=== PATIENT | male | born 1965 | race African-American/Black ===

== ENCOUNTER 2019-07-22 17:33 | Inpatient (IN) ==
[2019-07-22] MEDS ORDERED: CEFEPIME 2,000 MG/20 ML VIAL IV STA (17:54)
[2019-07-22] MEDS ORDERED: VANCOMYCIN HCL 1,750 MG in SODIUM CHLORIDE 0.9% 500 ML IV ONE (17:54)
[2019-07-22] MEDS ORDERED: VANCOMYCIN CONSULT ACTIVE PRN ×2 (17:54→21:16)
[2019-07-22] MEDS ORDERED: SODIUM CHLORIDE 0.9% 1000ML 1,000 ML IV SCH (18:00)
[2019-07-22 18:24] LABS: Basophils # (auto) 0.03 K/uL (0-0.2); Basophils % (auto) 0.4 %; Eosinophils # (auto) 0.24 K/uL (0-0.5); Eosinophils % (auto) 2.9 %; Hematocrit (blood only) 40.2 % (42-52); Hemoglobin 13.4 g/dL (14.0-18.0); Immature Granulocytes # (auto) 0.02 K/uL (0.00-0.02); Immature Granulocytes % (auto) 0.2 %; Lymphocytes # (auto) 2.01 K/uL (1.2-3.4); Lymphocytes % (auto) 24.2 %; Mean Corpuscular Hemoglobin 30.7 pg (25-34); Mean Corpuscular Hgb Conc 33.3 g/dL (32-36); Mean Corpuscular Volume 92.2 fL (80-100); Mean Platelet Volume 8.9 fL (7.4-10.4); Monocytes % (auto) 9.7 %; Neutrophils # (auto) 5.19 K/uL (1.4-6.5); Neutrophils % (auto) 62.6 %; Platelet Count 350 K/uL (130-400); RDW Coefficient of Variation 14.2 % (11.5-14.5); Red Blood Count 4.36 M/uL (4.7-6.1); White Blood Count 8.29 K/uL (4.8-10.8)
--- NOTE | 2019-07-22 18:30 | XRay Report ---
XR hand RT min 3V routine CLINICAL HISTORY: Right hand pain status post trauma COMPARISON: None. DISCUSSION: No acute fractures or dislocations are visualized. There is a corticated ossicle adjacent the volar base of the middle phalanx of the third finger. This is felt to represent an old avulsion fracture. There is soft tissue swelling at the level of the proximal interphalangeal joint of the thi rd finger. There are moderately advanced arthritic changes within the radiocarpal joint. IMPRESSION: 1. No acute fractures or dislocations 2. 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 Soft tissue swelling at the level of the proximal interphalangeal joint of the third finger 4. 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 07/22/2019 6:29 PM
[2019-07-22 18:42] LABS: Albumin Level 3.1 gm/dl (3.4-5.0); C Reactive Protein 4.39 mg/dl (0-0.29); Calcium 8.5 mg/dl (8.5-10.1); Est GFR (African American) 120.3; Est GFR (Non-African American) 103.8; Potassium 3.7 mmol/L (3.5-5.1)
[2019-07-22] MEDS ORDERED: MoRPHine SULFATE 4 MG/ML 1 ML CARP\\VIAL IV STA (18:43)
[2019-07-22] MEDS ORDERED: ONDANSETRON INJ 2 MG/ML 2 ML VIAL IV STA (18:43)
[2019-07-22 18:45] LABS: Albumin Globulin Ratio 0.7 (0.9-2); Bilirubin,Total 0.3 mg/dl (0.2-1); Globulin 4.7 gm/dl (2.5-4.0); Total Protein 7.8 gm/dl (6.4-8.2)
--- NOTE | 2019-07-22 20:49 | History & Physical Report ---
Date of Service July 22, 2019 Assessment & Plan (1) Cellulitis of hand, right: 54yo M no significant PMH, admitted for severe infection/purulent cellulitis of R hand and Rt 3rd finger Cellulitis -Wound and blood cultures pending -Will start on empiric vanc and zosyn -Consulted ortho, appreciate recs -MRI of hand ordered to r/o osteomyelitis -Vitals stable, no s/s of sepsis; cont to monitor -Elevated ESR, mildly elevated CRP; monitor at discretion of day team -Pain control with tylenol, oxy, and morphine prn Code: full DVTP: scds Dispo: MSO admit (2) Purulent abscess: History of Present Illness Chief Complaint: Infected finger Primary Care Provider: NO PCP Patient is a 54yo M no significant PMH, who presents with concerns for infected right 3rd finger. Patient notes that 2 weeks ago, he injured his rt 3rd finger after falling onto his closed hand, breaking skin on his 3rd knuckle. He states that on the day of the injury, he went to a hospital in [place], where they placed stitches. He states that it was recommended he take antibiotics, but due to work constraints he was unable to pick them up. He has not been on any abx in the last 2 weeks. 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 He states the wound had been "fine" over the past 2 weeks, but reports some pus-like drainage from the wound. Yesterday, he noted his R 3rd finger become very swollen and painful, which was new. He notes there is now pain and swelling in all of his digits on his R hand and this extends to his wrist. He denies fever, chills, nausea, vomiting, diarrhea. Reports limited ROM of the 3rd finger. He is a current daily smoker. In the ER, he was noted to be afebrile with stable vital signs. CBC revealed WBC of 8.3K. BMP normal. ESR >90 and CRP of 4.39. Blood and wound cultures were sent and are pending. He was given a dose of vancomycin and cefepime. 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 Allergies Allergy/AdvReac Type Severity Reaction Status Date / Time No Known Allergies Allergy Verified 07/22/19 18:46 Home Medications Home Medications Medication Instructions Recorded Confirmed Type No Known Home Medications 07/22/19 07/22/19 History Past Med/Surg History Medical History (Updated 07/23/19 @ 00:52 by Scott Golden PA-C) No chronic diseases present Surgical History (Updated 07/23/19 @ 00:47 by Scott Golden PA-C) No significant past surgical history Social History Preferred Language: Montserratian Communication Ability: Effective Cook Cold Meat Required: No Beliefs That Will Affect Care: None Current Living Situation: Other Current Living Situation Comment: roommate Feels Safe at Home: Yes Safety Concerns: Feels Safe At This Time Smoking Status: Current every day smoker Tobacco Type: cigarettes ; Cigarettes Per Day: 5 ; Hx Alcohol Use: Yes Alcohol type: beer Hx Substance Use: No Review of Systems Review of Systems: All systems reviewed & are unremarkable except as noted in HPI & below Constitutional: no fever, no chills and no fatigue Respiratory: no cough and no dyspnea Cardiovascular: no chest pain, no palpitations and no edema Gastrointestinal: no abdominal pain, no nausea, no vomiting and no diarrhea/loose stools Musculoskeletal: + joint pain, + deformity and + swelling Integumentary: + non-healing lesions, + wounds, + erythema and + skin swelling as per HPI; of R hand/wrist Neurologic: no loss of sensation and no numbness Physical Exam Constitutional: WD/WN, vitals as above average body habitus Eyes: PERRL, conjunctivae normal, anicteric sclerae ENMT: external ear and nose normal, oropharynx normal Neck: normal visual inspection Respiratory: normal respiratory effort, lungs clear to auscultation Cardiovascular: RRR, no murmur, no edema Gastrointestinal (Abdomen): normal bowel sounds, soft, nontender, no hepatosplenomegaly Musculoskeletal: Extremities: + hand abnormality (Diffuse swelling of R hand compared to L. 3rd finger open lesion, purulent) Right Skin: + lesion Trauma: + evidence of skin trauma Rt 3rd finger diffusely swollen with open wound at 3rd dorsal PIP joint with purulent discharge. Neurologic: PERRL, EOMI, accommodation nl, no face palsy, no dysarthria Psychiatric: A+Ox3, euthymic affect Results & Data Vital Signs (Past 12 Hours) Vital Signs Temp Pulse Pulse Resp BP BP Pulse Ox 07/22/19 20:12 88 18 138/90 95 07/22/19 18:29 75 18 142/91 H 96 07/22/19 17:37 98.8 F 97 H 18 157/107 H 97 Laboratory Results 07/22/19 07/22/19 07/22/19 Range/Units 18:05 18:05 18:05 WBC (4.8-10.8) K/uL RBC (4.7-6.1) M/uL Hgb (14.0-18.0) g/dL Hct (42-52) % MCV (80-100) fL MCH (25-34) pg MCHC (32-36) g/dL RDW Std Deviation (36.4-46.3) fL RDW Coeff of Indu (11.5-14.5) % Plt Count (130-400) K/uL MPV (7.4-10.4) fL Immature Gran % (Auto) % Neut % (Auto) % Lymph % (Auto) % [place] % (Auto) % Eos % (Auto) % Baso % (Auto) % Immature Gran # (Auto) (0.00-0.02) K/uL Neut # (Auto) (1.4-6.5) K/uL Lymph # (Auto) (1.2-3.4) K/uL [place] # (Auto) (0.11-0.59) K/uL Eos # (Auto) (0-0.5) K/uL Baso # (Auto) (0-0.2) K/uL ESR > 90 H (0-14) mm/hr Sodium 138 (136-145) mmol/L Potassium 3.7 (3.5-5.1) mmol/L Chloride 107 (98-107) mmol/L Carbon Dioxide 25 (21-32) mmol/L Anion Gap 6.0 (3-11) BUN 9 (7-18) mg/dl Creatinine 0.78 (0.6-1.4) mg/dl Est Cr Clr Drug Dosing 118.0 ml/min Est GFR ( Amer) 120.3 Est GFR (Non-Af Amer) 103.8 BUN/Creatinine Ratio 12.0 (10-20) Glucose 95 (70-99) mg/dl Lactate 0.7 (0.4-2.0) mmol/L Calcium 8.5 (8.5-10.1) mg/dl Total Bilirubin 0.3 (0.2-1) mg/dl AST 16 (15-37) U/L ALT 16 (12-78) U/L Alkaline Phosphatase 80 (45-117) U/L C-Reactive Protein 4.39 H (0-0.29) mg/dl Total Protein 7.8 (6.4-8.2) gm/dl Albumin 3.1 L (3.4-5.0) gm/dl Globulin 4.7 H (2.5-4.0) gm/dl Albumin/Globulin Ratio 0.7 L (0.9-2) 07/22/19 Range/Units 18:05 WBC 8.29 (4.8-10.8) K/uL RBC 4.36 L (4.7-6.1) M/uL Hgb 13.4 L (14.0-18.0) g/dL Hct 40.2 L (42-52) % MCV 92.2 (80-100) fL MCH 30.7 (25-34) pg MCHC 33.3 (32-36) g/dL RDW Std Deviation 48.0 H (36.4-46.3) fL RDW Coeff of Indu 14.2 (11.5-14.5) % Plt Count 350 (130-400) K/uL MPV 8.9 (7.4-10.4) fL Immature Gran % (Auto) 0.2 % Neut % (Auto) 62.6 % Lymph % (Auto) 24.2 % [place] % (Auto) 9.7 % Eos % (Auto) 2.9 % Baso % (Auto) 0.4 % Immature Gran # (Auto) 0.02 (0.00-0.02) K/uL Neut # (Auto) 5.19 (1.4-6.5) K/uL Lymph # (Auto) 2.01 (1.2-3.4) K/uL [place] # (Auto) 0.80 H (0.11-0.59) K/uL Eos # (Auto) 0.24 (0-0.5) K/uL Baso # (Auto) 0.03 (0-0.2) K/uL ESR (0-14) mm/hr Sodium (136-145) mmol/L Potassium (3.5-5.1) mmol/L Chloride (98-107) mmol/L Carbon Dioxide (21-32) mmol/L Anion Gap (3-11) BUN (7-18) mg/dl Creatinine (0.6-1.4) mg/dl Est Cr Clr Drug Dosing ml/min Est GFR ( Amer) Est GFR (Non-Af Amer) BUN/Creatinine Ratio (10-20) Glucose (70-99) mg/dl Lactate (0.4-2.0) mmol/L Calcium (8.5-10.1) mg/dl Total Bilirubin (0.2-1) mg/dl AST (15-37) U/L ALT (12-78) U/L Alkaline Phosphatase (45-117) U/L C-Reactive Protein (0-0.29) mg/dl Total Protein (6.4-8.2) gm/dl Albumin (3.4-5.0) gm/dl Globulin (2.5-4.0) gm/dl Albumin/Globulin Ratio (0.9-2) Diagnostic Findings XR hand RT min 3V routine CLINICAL HISTORY: Right hand pain status post trauma COMPARISON: None. DISCUSSION: No acute fractures or dislocations are visualized. There is a corticated ossicle adjacent the volar base of the middle phalanx of the third finger. This is felt to represent an old avulsion fracture. There is soft tissue swelling at the level of the proximal interphalangeal joint of the third finger. There are moderately advanced arthritic changes within the radiocarpal joint. IMPRESSION: 1. No acute fractures or dislocations 2. 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 Soft tissue swelling at the level of the proximal interphalangeal joint of the third finger 4. 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 07/22/2019 6:29 PM Code Status & VTE Plan Code Status Full VTE Prophylaxis Plan VTE Prophylaxis will be ordered: Yes Supervising Physician Co-Signing Physician Notes Attending addendum: I have physically seen this patient, have supervised the medical residents activities, and agree with the H&P unless as otherwise noted. Assessment and Plan: Cellulitis of right hand/third finger- Admit to medical surgical floor. Vancomycin IV and Zosyn IV empirically. Follow wound culture and blood culture results. N.p.o. after midnight except medications. IV fluids. Acetaminophen 650 mg p.o. every 6 hours PRN mild pain or temperature. Oxycodone 5 mg p.o. every 6 hours as needed moderate pain. Morphine sulfate 2 mg IV every 4 hours as needed severe pain. Follow results of MRI of hand to assess for possible osteomyelitis. Remainder of orders and notations as noted. Resident Activity Tracking Resident Involvement: Resident Care Provided Care Provided: [facility]
[2019-07-22] MEDS ORDERED: MAGNESIUM HYDROXIDE SUSP 30 ML UDC PO PRN (21:16)
[2019-07-22] MEDS ORDERED: ONDANSETRON INJ 2 MG/ML 2 ML VIAL IV PRN (21:16)
[2019-07-22] MEDS ORDERED: MoRPHine SULFATE 4 MG/ML 1 ML CARP\\VIAL IV PRN (21:16)
[2019-07-22] MEDS ORDERED: ALUMINUM/MAGNESIUM SUSP 30 ML UDC PO PRN (21:16)
[2019-07-22] MEDS ORDERED: POLYETHYLENE (MIRALAX) 17 GM PACK PO PRN (21:16)
[2019-07-22] MEDS ORDERED: ACETAMINOPHEN 325 MG TAB PO PRN (21:16)
[2019-07-22] MEDS ORDERED: PIPERACILL/TAZOBAC CONSULT ACTIVE PRN (21:16)
[2019-07-22] MEDS: PIPERACILLIN/TAZOBACTAM 3.375 GM in DEXTROSE 5% 100 ML IV SCH (22:26)
[2019-07-22] MEDS: OXYCODONE HCL IR 5 MG TAB (IMMEDIATE RELEASE) PO PRN (23:38)
--- NOTE | 2019-07-23 00:51 | Emergency Department Note ---
History of Present Illness General Chief complaint: Finger Pain Stated complaint: RIGHT MIDDLE FINGER INFECTION Time Seen by Provider: 07/22/19 17:43 History of Present Illness Maximum Pain Intensity: 9 This is a 54-year-old male presenting to the emergency department for evaluation of right middle finger pain and infection worsening over the past several days. Evidently the patient lives in the [facility], and fell to the ground, striking this digit off the concrete. He went to an emergency room in [place] where the wound was cleansed and closed with a total of 3 stitches. The patient was prescribed antibiotics, but evidently lost his prescription. 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 The patient believes he is up-to-date on his tetanus. He has been with worsening pain over the past few days, and now has significant swelling into the finger and hand. He is having difficulty bending and extending the finger. He rates his overall discomfort in 8/10. He is not diabetic and does not report other chronic medical disease. Home Medications Home Medications Medication Instructions Recorded Confirmed Type No Known Home Medications 07/22/19 07/22/19 History Allergies Allergy/AdvReac Type Severity Reaction Status Date / Time No Known Allergies Allergy Verified 07/22/19 18:46 Past Med/Surg History Medical History (Updated 07/23/19 @ 00:52 by Scott Golden PA-C) No chronic diseases present Surgical History (Updated 07/23/19 @ 00:47 by Scott Golden PA-C) No significant past surgical history Social History Preferred Language: Arabic Communication Ability: Effective Flour Inspector Required: No Beliefs That Will Affect Care: None Current Living Situation: Other Current Living Situation Comment: roommate Feels Safe at Home: Yes Safety Concerns: Feels Safe At This Time Smoking Status: Current every day smoker Tobacco Type: cigarettes ; Cigarettes Per Day: 5 ; Hx Alcohol Use: Yes Alcohol type: beer Hx Substance Use: No Review of Systems A total of 10 systems reviewed and were otherwise negative Physical Exam Vital Signs Vital Signs - 24 hr 07/22/19 17:37 07/22/19 18:29 07/22/19 20:12 Temperature 37.1 C Temperature Source Oral Pulse Rate 97 H Pulse Rate [Finger] 75 88 Respiratory Rate 18 18 18 Respiratory Effort / Characteristics Non-Labored Spontaneous Respiratory Depth Normal Blood Pressure 157/107 H Blood Pressure [Right Arm] 142/91 H 138/90 Blood Pressure Mean 123 Blood Pressure Mean [Right Arm] 108 106 Blood Pressure Position Sitting Pulse Oximetry 97 96 95 Oxygen Delivery Method Room Air Room Air Sepsis Recent Fever Within 48 Hours No Sepsis Action Taken by Nursing No Action Required VITALS: Vitals are noted on the nurse's note and reviewed by myself. Vital signs stable. GENERAL: Well-developed, well-nourished, black male, who is in no acute distress and resting comfortably. Patient is cooperative with the examination. HEAD: Normocephalic atraumatic. NECK: Supple without nuchal rigidity. No lymphadenopathy. No thyromegaly. Cervical spine is nontender. HEART: Regular rate and rhythm without murmurs gallops or rubs. LUNGS: Clear to auscultation bilaterally without wheezes, rales or rhonchi. No retractions or accessory muscle use. MUSCULOSKELETAL: There is significant erythema and edema appreciated over the right third finger posteriorly. The erythema and edema extends into the right hand and just past the right wrist. There is what seems to be an obvious purulent infection just over the proximal metacarpal joint. Wound culture was obtained. The patient is with significant discomfort flexing and extending this digit. NEURO: Patient was alert and oriented to person place and time. CN II through XII grossly intact. SKIN: The skin was without additional rashes, erythema, edema, or bruising. Capillary refill less than 2 seconds. Course Administered Medications Piperacillin Sod/Tazobactam (Sod 3.375 gm/ Dextrose) 115 mls @ 28.75 mls/hr IV Q8H [facility]; Protocol Stop: 08/01/19 21:59 Last Admin: 07/22/19 22:26 Dose: 28.8 mls/hr Documented by: [id number] Oxycodone HCl (Roxicodone Immediate Rel) 5 mg PO Q6H PRN PRN Reason: Moderate Pain Stop: 08/05/19 21:15 Last Admin: 07/22/19 23:38 Dose: 5 mg Documented by: [id number] Discontinued Medications Sodium Chloride (Nss 1000ml) 1,000 mls @ 999 mls/hr IV .Q1H1M DAMARI Stop: 07/22/19 19:00 Last Infusion: 07/22/19 19:32 Dose: 0 mls/hr Documented by: [id number] Admin: 07/22/19 18:31 Dose: 999 mls/hr Documented by: [id number] Vancomycin HCl 1,750 mg/ (Sodium Chloride) 535 mls @ 200 mls/hr IV NOW ONE Stop: 07/22/19 20:34 Last Infusion: 07/22/19 21:10 Dose: 0 mls/hr Documented by: [id number] Admin: 07/22/19 18:36 Dose: 200 mls/hr Documented by: [id number] Cefepime HCl (Maxipime) 2,000 mg in 20 mls @ 5 mls/min IV NOW STA; Protocol Stop: 07/22/19 17:57 Last Admin: 07/22/19 18:31 Dose: 5 mls/min Documented by: [id number] Morphine Sulfate (Morphine Sulfate) 4 mg IV NOW STA Stop: 07/22/19 18:44 Last Admin: 07/22/19 18:48 Dose: 4 mg Documented by: [id number] Ondansetron HCl (Zofran) 4 mg IV NOW STA Stop: 07/22/19 18:44 Last Admin: 07/22/19 18:48 Dose: 4 mg Documented by: [id number] Medical Decision Making Differential Diagnosis Differential diagnosis includes: Etiologies such as cellulitis, abscess, osteomyelitis, MRSA infection, DVT, necrotizing fasciitis, dermatitis, drug eruption, as well as others were entertained Laboratory Data Result diagrams: 07/22/19 18:05 07/22/19 18:05 Lab Results 07/22/19 07/22/19 07/22/19 Range/Units 18:05 18:05 18:05 WBC 8.29 (4.8-10.8) K/uL RBC 4.36 L (4.7-6.1) M/uL Hgb 13.4 L (14.0-18.0) g/dL Hct 40.2 L (42-52) % MCV 92.2 (80-100) fL MCH 30.7 (25-34) pg MCHC 33.3 (32-36) g/dL RDW Std Deviation 48.0 H (36.4-46.3) fL RDW Coeff of Indu 14.2 (11.5-14.5) % Plt Count 350 (130-400) K/uL MPV 8.9 (7.4-10.4) fL Immature Gran % (Auto) 0.2 % Neut % (Auto) 62.6 % Lymph % (Auto) 24.2 % [place] % (Auto) 9.7 % Eos % (Auto) 2.9 % Baso % (Auto) 0.4 % Immature Gran # (Auto) 0.02 (0.00-0.02) K/uL Neut # (Auto) 5.19 (1.4-6.5) K/uL Lymph # (Auto) 2.01 (1.2-3.4) K/uL [place] # (Auto) 0.80 H (0.11-0.59) K/uL Eos # (Auto) 0.24 (0-0.5) K/uL Baso # (Auto) 0.03 (0-0.2) K/uL ESR > 90 H (0-14) mm/hr Sodium 138 (136-145) mmol/L Potassium 3.7 (3.5-5.1) mmol/L Chloride 107 (98-107) mmol/L Carbon Dioxide 25 (21-32) mmol/L Anion Gap 6.0 (3-11) BUN 9 (7-18) mg/dl Creatinine 0.78 (0.6-1.4) mg/dl Est Cr Clr Drug Dosing 118.0 ml/min Est GFR ( Amer) 120.3 Est GFR (Non-Af Amer) 103.8 BUN/Creatinine Ratio 12.0 (10-20) Glucose 95 (70-99) mg/dl Lactate (0.4-2.0) mmol/L Calcium 8.5 (8.5-10.1) mg/dl Total Bilirubin 0.3 (0.2-1) mg/dl AST 16 (15-37) U/L ALT 16 (12-78) U/L Alkaline Phosphatase 80 (45-117) U/L C-Reactive Protein 4.39 H (0-0.29) mg/dl Total Protein 7.8 (6.4-8.2) gm/dl Albumin 3.1 L (3.4-5.0) gm/dl Globulin 4.7 H (2.5-4.0) gm/dl Albumin/Globulin Ratio 0.7 L (0.9-2) 07/22/19 Range/Units 18:05 WBC (4.8-10.8) K/uL RBC (4.7-6.1) M/uL Hgb (14.0-18.0) g/dL Hct (42-52) % MCV (80-100) fL MCH (25-34) pg MCHC (32-36) g/dL RDW Std Deviation (36.4-46.3) fL RDW Coeff of Indu (11.5-14.5) % Plt Count (130-400) K/uL MPV (7.4-10.4) fL Immature Gran % (Auto) % Neut % (Auto) % Lymph % (Auto) % [place] % (Auto) % Eos % (Auto) % Baso % (Auto) % Immature Gran # (Auto) (0.00-0.02) K/uL Neut # (Auto) (1.4-6.5) K/uL Lymph # (Auto) (1.2-3.4) K/uL [place] # (Auto) (0.11-0.59) K/uL Eos # (Auto) (0-0.5) K/uL Baso # (Auto) (0-0.2) K/uL ESR (0-14) mm/hr Sodium (136-145) mmol/L Potassium (3.5-5.1) mmol/L Chloride (98-107) mmol/L Carbon Dioxide (21-32) mmol/L Anion Gap (3-11) BUN (7-18) mg/dl Creatinine (0.6-1.4) mg/dl Est Cr Clr Drug Dosing ml/min Est GFR ( Amer) Est GFR (Non-Af Amer) BUN/Creatinine Ratio (10-20) Glucose (70-99) mg/dl Lactate 0.7 (0.4-2.0) mmol/L Calcium (8.5-10.1) mg/dl Total Bilirubin (0.2-1) mg/dl AST (15-37) U/L ALT (12-78) U/L Alkaline Phosphatase (45-117) U/L C-Reactive Protein (0-0.29) mg/dl Total Protein (6.4-8.2) gm/dl Albumin (3.4-5.0) gm/dl Globulin (2.5-4.0) gm/dl Albumin/Globulin Ratio (0.9-2) Imaging Data Radiologist's Impression: XR hand RT min 3V routine CLINICAL HISTORY: Right hand pain status post trauma COMPARISON: None. DISCUSSION: No acute fractures or dislocations are visualized. There is a corticated ossicle adjacent the volar base of the middle phalanx of the third finger. This is felt to represent an old avulsion fracture. There is soft tissue swelling at the level of the proximal interphalangeal joint of the third finger. There are moderately advanced arthritic changes within the radiocarpal joint. IMPRESSION: 1. No acute fractures or dislocations 2. 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 Soft tissue swelling at the level of the proximal interphalangeal joint of the third finger 4. 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 Nursing notes, EMR, and Medication List were personally reviewed. Patient appears to have significant infection of the right third finger extending into his hand and wrist. There is significant purulence coming from the right hand over the right third finger. The patient is right-hand dominant. IV access was established and labs were obtained. Blood cultures were gathered. Wound culture was sent. X-ray was performed. The patient was given IV vancomycin and IV cefepime for broad coverage. He was given IV morphine and IV Zofran. The patient's blood work is as above and was reviewed. He does not have a sig nificantly elevated white blood cell count or gross anemia. He does have a markedly elevated sed rate at greater than 90, as well as a corresponding CRP that is elevated at 4.39. X-ray was reviewed by myself and radiology him does not show any acute fractures or dislocations. No obvious osteomyelitis is identified. I did have a lengthy discussion with the patient regarding his findings and opt ions of care. Based on his infection I have significant concern that he could lose the finger or possibly need surgical washout. The patient is comfortable with staying in the hospital. The case was discussed with the on-call hospitalist who agreed to evaluate the patient. Please see their dictation for further patient course, plan, and disposition. The chart was completed utilizing [employer] Voice Recognition Software. Grammatical errors, random word insertions, pronoun errors, and incomplete sentences are an occasional consequence of this system due to software limitations, ambient noise, and hardware issues. Any formal questions or concerns about the content, text, or information contained within the body of this dictation should be directly addressed to the provider for clarification. . Impression & Plan Abscess of finger, Cellulitis of hand, right Discharge Plan Visit Data *Final* Discharge Date/Time: 07/22/19 21:03 Chief Complaint: Finger Pain Stated Complaint: RIGHT MIDDLE FINGER INFECTION ED Provider: Lino Sargent ED Midlevel Provider: Scott Golden Discharge Problem: Abscess of finger, Cellulitis of hand, right Patient Disposition: Admitted As Inpatient Discharge Instructions Interventions: ED Discharge Assessment Last Done: 07/22/19 21:03 Discharge Problem: Abscess of finger Qualifiers: Laterality: right Qualified Code(s): L02.511 - Cutaneous abscess of right hand
[2019-07-23] MEDS: VANCOMYCIN HCL 1,500 MG in SODIUM CHLORIDE 0.9% 500 ML IV SCH ×3 (02:26→19:22)
--- NOTE | 2019-07-23 04:25 | Billing Data ---
Coding Level of Care Code 88655 Initial Inpt Care Lvl 2
[2019-07-23 05:25] LABS: Basophils # (auto) 0.04 K/uL (0-0.2); Basophils % (auto) 0.8 %; Eosinophils # (auto) 0.26 K/uL (0-0.5); Eosinophils % (auto) 4.9 %; Hematocrit (blood only) 35.4 % (42-52); Hemoglobin 11.6 g/dL (14.0-18.0); Immature Granulocytes # (auto) 0.01 K/uL (0.00-0.02); Immature Granulocytes % (auto) 0.2 %; Lymphocytes # (auto) 1.96 K/uL (1.2-3.4); Lymphocytes % (auto) 36.8 %; Mean Corpuscular Hemoglobin 30.5 pg (25-34); Mean Corpuscular Hgb Conc 32.8 g/dL (32-36); Mean Corpuscular Volume 93.2 fL (80-100); Mean Platelet Volume 8.9 fL (7.4-10.4); Monocytes # (auto) 0.68 K/uL (0.11-0.59); Monocytes % (auto) 12.8 %; Neutrophils # (auto) 2.37 K/uL (1.4-6.5); Neutrophils % (auto) 44.5 %; Platelet Count 321 K/uL (130-400); RDW Coefficient of Variation 14.3 % (11.5-14.5); RDW Standard Deviation 48.7 fL (36.4-46.3); White Blood Count 5.32 K/uL (4.8-10.8)
[2019-07-23] MEDS: PIPERACILLIN/TAZOBACTAM 3.375 GM in DEXTROSE 5% 100 ML IV SCH ×3 (05:30→22:41)
[2019-07-23 05:46] LABS: Albumin Level 2.6 gm/dl (3.4-5.0); BUN Creatinine Ratio 9.7 (10-20); Calcium 8.2 mg/dl (8.5-10.1); Creatinine Clr Calc Pharmacy 110.9 ml/min; Est GFR (African American) 117.3; Est GFR (Non-African American) 101.2
[2019-07-23 05:49] LABS: Albumin Globulin Ratio 0.7 (0.9-2); Bilirubin,Total 0.5 mg/dl (0.2-1); Total Protein 6.6 gm/dl (6.4-8.2)
--- NOTE | 2019-07-23 08:04 | Hospitalist Progress Note ---
Date of Service July 23, 2019 Assessment & Plan (1) Cellulitis of hand, right: 54yo M no significant PMH, admitted for severe infection/purulent cellulitis of R hand and Rt 3rd finger Cellulitis -Wound and blood cultures growing staph aures with pending sensitivities -Continue with vanc and zosyn -Consulted ortho, plan for surgical intervention today -MRI of hand ordered to r/o osteomyelitis, which showed significant infection without cellulitis -Vitals stable, no s/s of sepsis; cont to monitor -Elevated ESR, mildly elevated CRP -Pain control with tylenol, oxy, and morphine prn -Tetanus ordered since unsure of last Code: full DVTP: scds Dispo: MSO admit (2) Purulent abscess: Supervising Physician Co-Signing Physician Notes Attending attestation Pt seen and examined in concert with Dr. Castillo. In agreement with the documented findings as noted in the resident documentation with any exceptions or additions as noted here. Pain improving and well controlled on present regimen prior to surgery. On examination, S1/S2 nl RRR no MCG. CTAB. Abd NT/ND BS+ve. Right 3rd PIP with considerable swelling, erythema and minimal drainage. Right 3rd digit cellulitis - MRI results as noted, ortho to OR for debridement today. Continue abx therapy. F/U Cx to narrow therapy. Else see resident documentation as noted. Subjective No acute events reported overnight, plan for surgery today, tolerating medications without difficulty. Physical Exam Constitutional: WD/WN, vitals as above Eyes: + anicteric sclerae and EOM intact bilaterally Neck: normal visual inspection and trachea midline Respiratory: normal respiratory effort, lungs clear to auscultation Cardiovascular: Rate/Rhythm: regular rate and regular rhythm Musculoskeletal: Head/Neck/Chest: normocephalic and head atraumatic grossly significant cellulitis of right hand Skin: no rashes, warm and dry Psychiatric: A+Ox3, euthymic affect Results & Data Vital Signs (Past 12 Hours) Vital Signs Temp Pulse Resp BP Pulse Ox 07/23/19 07:11 36.9 C 83 16 111/72 93 07/22/19 23:50 37 C 86 18 116/70 94 07/22/19 21:29 37.1 C 80 16 151/80 H 93 07/22/19 20:12 88 18 138/90 95 Resident Activity Tracking Resident Involvement: Resident Care Provided Care Provided: Adult Hospital Medicine
[2019-07-23] MEDS: OXYCODONE HCL IR 5 MG TAB (IMMEDIATE RELEASE) PO PRN ×2 (08:19→19:21)
--- NOTE | 2019-07-23 08:47 | Pharmacy Report ---
Pharmacy Abx Initial Consult - Date of Service July 23, 2019 - Pharmacy Dosing Scope Date of Consult: 07/22/19 Consultation requested by: Dr. Hyman Pharmacy is consulted to initiate vancomycin and Zosyn IV dosing therapy, order appropriate labs and adjust drug dose/frequency. - Subjective The patient is a 54 year old M admitted on 07/22/19 20:43. - Objective Height: 5 ft 11 in Weight: 84.9 kg Vital Signs (Past 12hrs): Vital Signs Temp Pulse Resp BP Pulse Ox 07/23/19 07:11 36.9 C 83 16 111/72 93 07/22/19 23:50 37 C 86 18 116/70 94 07/22/19 21:29 37.1 C 80 16 151/80 H 93 Lab Results (24hrs): Laboratory Tests (24 Hours) 07/23/19 07/23/19 07/22/19 04:56 04:56 18:05 WBC 5.32 Neut # (Auto) 2.37 ESR Creatinine 0.83 0.78 Est Cr Clr Drug Dosing 110.9 118.0 C-Reactive Protein 4.39 H 07/22/19 07/22/19 18:05 18:05 WBC 8.29 Neut # (Auto) 5.19 ESR > 90 H Creatinine Est Cr Clr Drug Dosing C-Reactive Protein Micro Results: 07/22/19 17:52 Gram Stain - Final Finger Wound Culture - Pending 07/22/19 18:05 Aerobic Blood Culture - Pending Blood Anaerobic Blood Culture - Pending 07/22/19 18:05 Aerobic Blood Culture - Pending Blood Anaerobic Blood Culture - Pending - Assessment & Plan Assessment 54 year old M receiving empiric vancomycin and Zosyn for purulent cellulitis of the right hand and right third finger. Patient injured his hand approximately 2 weeks ago - received stitches at hospital in [place]. He was ordered antibiotics, but these were never taken by the patient. Patient notes purulent drainage from the wound and states that his right third finger became very swollen on 07/21/19. Patient is afebrile with good/stable renal function and no leukocytosis. Hand x-ray (07/22/19): soft tissue swelling at the level of the proximal interpha langeal joint of the third finger Microbiology: * Blood x 2 (07/22/19): pending * Finger (07/22/19): gram stain reveals rare gram positive cocci and many WBCs; culture pending Plan Vancomycin IV * Estimated PK Parameters: Vd 0.7 L/kg, Agustín 0.102 hr-1, t1/2 6.8 hr * Loading dose: 1750 mg (20 mg/kg) * Maintenance dose: 1500 mg IV (17.5 mg/kg) every 8 hours * Dosing vanco to achieve AUC:MICHELLE > 400 * Trough ordered for 07/24 @0130 Piperacillin/tazobactam * 3.375 g bolus administered over 30 minutes, then 3.375 g IV extended infusion every 8 hours for CrCl greater than 20 mL/min Pharmacy will continue to follow and will adjust dose/frequency as necessary. Thank you.
[2019-07-23] MEDS ORDERED: VANCOMYCIN TROUGH ONE (09:30)
--- NOTE | 2019-07-23 10:43 | Magnetic Resonance Report ---
MR hand RT wo con HISTORY: Right third finger swelling. Concern for osteomyelitis TECHNIQUE: Multiplanar multisequence MRI of the right hand was performed without the use of intraveno us contrast. COMPARISON STUDY: Right hand radiograph 07/22/2019. FINDINGS: Dorsal soft tissue swelling and subcutaneous edema seen throughout the hand. There is also diffuse soft tissue edema at the third finger most pronounced at the PIP joint. Subtle marrow edema w ithout abnormal T1 signal seen at the head/neck of the proximal phalanx of the third finger. There is small amount of surrounding fluid/hemorrhage at the neck of the proximal phalanx best seen on sagitt al STIR image 19. This measures up to 3 mm in thickness. No erosive changes present. There is also a small focus of marrow edema at the dorsal head of the third metacarpal. No acute fracture or dislocat ion. Redemonstration of the old avulsion injury at the volar plate of the middle phalanx of the third finger with slight retraction of the flexor digitorum tendon. IMPRESSION: 1. Dorsal soft tissue swelling is subcutaneous edema seen throughout the hand most pronounced at the PIP joint of the third finger. 2. Subtle marrow edema without abnormal T1 signal at the head/neck of the proximal phalanx of the thi rd finger. There is also small amount of surrounding fluid/hemorrhage at the neck of the proximal pha lanx which could be subperiosteal. This raises the possibility of a healing fracture. Follow-up radio graph in 2 weeks is recommended for confirmation. No acute fractures identified. A developing osteiti s/infectious process is considered less likely given the lack of T1 signal abnormality but not entire ly excluded. 3. Small focus of mild marrow edema along the dorsal head of the third metacarpal. This could represe nt a prior bone contusion in the appropriate clinical setting. 4. Redemonstration of the old avulsion injury at the volar plate of the middle phalanx of the third f nicol with slight retraction of the flexor digitorum tendon. Electronically signed by: Sathya Griffin M.D. 07/23/2019 10:41 AM
--- NOTE | 2019-07-23 10:59 | Consultation Report ---
DATE OF CONSULTATION: 07/23/2019 CHIEF COMPLAINT: Right long finger infection. HISTORY OF PRESENT ILLNESS: This 54-year-old -[place] male presented to the ED yesterday with complaints of significant infection in his right long finger. The patient states that he fell on to the hand last week. The skin was broken over the PIP joint of the long finger. He went to a hospital in [place] where the wound was irrigated and closed. He was prescribed antibiotics, but was unable to pick them up. 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 Injury did not occur at work. On Tuesday, he noted that the right long finger became swollen and painful. The area that was previously sutured developed significant purulent drainage. He noticed a red streak coming up the dorsum of the hand to the wrist. It was warm. No fevers, chills, nausea, vomiting or shoulder pain. He states it is difficult to move the finger secondary to pain. No prior history of significant hand injury. PAST MEDICAL HISTORY: Benign. No history of diabetes. PREVIOUS SURGERIES: None. SOCIAL HISTORY: The patient is single. Employed in construction. Daily tobacco use, occasional ETOH use. FAMILY HISTORY: Noncontributory. ALLERGIES: NKDA. CURRENT MEDICATIONS: None. REVIEW OF SYSTEMS: A total of 10 systems are reviewed and are significant only for above stated conditions. PHYSICAL EXAMINATION: VITAL SIGNS: Temp 36.9, pulse 83, BP 111/72, respirations 16, O2 sat 93% on room air. GENERAL: Well-developed, well-nourished middle aged -[place] male in no acute distress. Lying on a bed. Alert and oriented. SKIN: Warm and dry with good turgor. No rashes. The patient has an open wound present on the dorsum of his right long finger at the PIP joint. There is catalina pus expressible from the wound. Wound edges are gaping. Long finger is edematous. There is warmth to the dorsum of the hand. No lymphangitis. MUSCULOSKELETAL: The patient has no discomfort with palpation over his wrist or metacarpals. No pain with palpation over the thumb, index, ring or little fingers. He does have discomfort with palpation over the long finger both dorsally and volar. He does have intact motor function to the DIP and PIP joints through isolation. This does cause some pain. There is no open wound on the flexor side, though there is some erythema. NEUROLOGIC: Gross sensation is intact across each of the digits of the right hand. He notes decreased subjective sensation across the tip of the long finger compared to the other digits. Capillary refill is equal for each of the fingers. DATA: Radiographic imaging previously obtained shows no acute fracture or dislocation. Advanced arthritic changes at the radiocarpal joint. Soft tissue swelling at the PIP joint of the long finger. Old avulsion fracture at the volar base of the middle phalanx of the long finger. LAB WORK: CBC obtained this morning shows a normal white count of 5.3. Mildly low H and H of 11.6 and 35.4. Chemistry panel is relatively unremarkable other than albumin low at 2.6. IMPRESSION: Right long finger infection. PLAN: The patient was educated regarding today's findings. He will require incision and drainage in the OR. The patient is already n.p.o. He is already on vancomycin and Zosyn. He will be seen by Dr. Farmer later today for consent. We will continue to follow while he is in the hospital. He may ultimately require additional followup closer to home in [place]. MRI of the hand is scheduled for later this morning to rule out osteomyelitis. i, Dr. Farmer, saw and examined the patient and agree with the above findings and plan of care discussed with my PA. Will take to OR later today for I&D. Risks and benefits discussed. Patient understands he may require repeat I&D. The informed consent was signed. OSMIN
[2019-07-23] MEDS ORDERED: LIDOCAINE HCL 2% 2 ML VIAL/AMP(20MG/ML) INFIL ONE (15:00)
[2019-07-23] MEDS ORDERED: MIDAZOLAM HCL 1 MG/ML 2ML VIAL ONE (15:00)
[2019-07-23] MEDS ORDERED: PROPOFOL IV EMULSION 10 MG/ML 20 ML VIAL IV ONE (15:00)
[2019-07-23] MEDS ORDERED: ONDANSETRON INJ 2 MG/ML 2 ML VIAL ONE (15:00)
[2019-07-23] MEDS ORDERED: fentaNYL citrate 100 MCG/2 ML VIAL ONE (15:01)
[2019-07-23] MEDS ORDERED: DIPHTHERIA/TETANUS/PERTUSSIS 0.5 ML SYR/VIAL IM ONE (15:16)
--- NOTE | 2019-07-23 15:51 | Anesthesiology Consultation ---
Date of Service July 23, 2019 Assessment & Plan ASA ASA2 Proposed Anesthesia Anesthesia Type: General Risk / Benefits Reviewed With: PT / POA / Parent / Guardian, Accepts Plan and Informed Consent Obtained History Surgery Operation Date: 07/23/19 08:20 Proposed Procedures p Right Long Finger Abscess Incision and Drainage - Servando Charlee Farmer MD Height/Weight Height: 5 ft 11 in Weight: 84.9 kg Allergies Allergy/AdvReac Type Severity Reaction Status Date / Time No Known Allergies Allergy Verified 07/22/19 18:46 Medications Home Medications Medication Instructions Recorded Confirmed Last Taken No Known Home Medications 07/22/19 07/22/19 Unknown Active Medications Generic Name Dose Route Start Last Admin Trade Name Freq PRN Reason Stop Dose Admin Vancomycin HCl 1,500 mg/ 530 mls @ 200 mls/hr 07/23/19 02:00 07/23/19 12:47 Sodium Chloride IV 08/02/19 01:59 Infused Q8H DAMARI Infusion Piperacillin Sod/Tazobactam 115 mls @ 28.75 mls/hr 07/22/19 22:00 07/23/19 13:05 Sod 3.375 gm/ Dextrose IV 08/01/19 21:59 28.8 mls/hr Q8H DAMARI Administration Protocol Oxycodone HCl 5 mg 07/22/19 21:16 07/23/19 08:19 Roxicodone Immediate Rel PO 08/05/19 21:15 5 mg Q6H PRN Administration Moderate Pain NPO Date Last Intake of Fluids: 07/22/19 Time Last Intake of Fluids: 23:30 Last Intake of Fluids Comment: "sip with my pain medicine this morning" Date Last Intake of Solids: 07/22/19 Time Last Intake of Solids: 23:30 Last Intake of Solids Comment: "ice cream" Past Medical History Medical History No chronic diseases present Exercise / Class Metabolic Activity 1 > 8 Run/Swim/Ski/Tennis Past Surgical History Surgical History No significant past surgical history Past Anesthesia History No Hx of Anesthesia Complications and No Family Hx of Anesthesia Complications History of PONV No Hx of PONV and No Hx of Motion Sickness Social History Smoking Status: Current every day smoker tobacco type: cigarettes Smoking cigarettes per day: 5 Hx Alcohol Use: Yes Alcohol type: beer alcohol intake frequency: holidays/special occasions only Hx Substance Use: No Review of Systems denies fever/cough/ colds/ chest pain/ SOB/ GALINDO Constitutional: no fever and no chills Respiratory: no cough and no dyspnea denies GALINDO Cardiovascular: no chest pain and no dyspnea on exertion Physical Exam Vital Signs Last Vital Signs Temp 37 C 07/23/19 14:20 Pulse 79 07/23/19 14:20 Resp 18 07/23/19 14:20 BP 140/83 07/23/19 14:20 Pulse Ox 93 07/23/19 14:20 ENMT Mouth: no TMJ abnormality and no dentition abnormality Thyromental Distance: > or= 3.5 Finger Breadths Mallampati Class: II Neck neck extension not limited Respiratory normal respiratory effort; no respiratory distress Auscultation: lungs clear to auscultation bilaterally Cardiovascular Rate/Rhythm: regular rate and regular rhythm Neurologic moves all extremities Psychiatric Orientation: alert and oriented x 3 Testing Laboratory Results 07/23/19 04:56 07/23/19 04:56 07/22/19 17:52 Gram Stain - Final Finger Wound Culture - Preliminary Staphylococcus aureus Group A Beta Strep
[2019-07-23] MEDS ORDERED: fentaNYL citrate 100 MCG/2 ML VIAL IV PRN (15:54)
[2019-07-23] MEDS ORDERED: ePHEDrine sulfate 50 MG/ML AMP IV PRN (15:54)
[2019-07-23] MEDS ORDERED: ATROPINE SULFATE 0.1 MG/ML 10ML SYR IV PRN (15:54)
--- NOTE | 2019-07-23 16:10 | History & Physical Bridge Note ---
Date of Service July 23, 2019 History & Physical Bridge Note I have examined the patient, reviewed the History & Physical and in the interval since the performance of the History & Physical I have noted the following changes of clinical significance: no changes noted
[2019-07-23] MEDS ORDERED: BUPIVACAINE 0.5 % 5 MG/1 ML MPF 30ML VIAL ONE (16:22)
[2019-07-23] MEDS ORDERED: LIDOCAINE/EPINEPHRINE 1% 20 ML VIAL ONE (16:22)
[2019-07-23] MEDS ORDERED: LIDOCAINE HCL 1% 20 ML VIAL ONE (16:34)
[2019-07-23] MEDS ORDERED: KETOROLAC 30 MG/ML VIAL ONE (17:04)
--- NOTE | 2019-07-23 18:03 | Post Operative Brief Note ---
Immediate Post Op Note v1 Date of Surgery July 23, 2019 Pre & Post Diagnosis Operation Date: 07/23/19 08:20 Pre-Op Diagnosis: Right Middle Finger infection with Purulent Drainage Post-Op Diagnosis: Right Middle Finger infection with Purulent Drainage I identified the patient and participated in the time-out.: Yes Procedure Operation Date: 07/23/19 08:20 Actual Procedures p Right Third Finger Deep Incision and Drainage(Right) - Servando Farmer MD Surgeon Servando Farmer MD Sales Training Manager C Flo & Luis Ryan PA-C (No fellow avail) Estimated Blood Loss 7 Findings Consistent with Post-Op Diagnosis Fluids 800 cc Specimens C& S R MF R MF soft tissue Anesthesia Type General Complications none
--- NOTE | 2019-07-23 18:05 | Operative Report ---
Post Operative Report Pre & Post Diagnosis Operation Date: 07/23/19 08:20 Pre-Op Diagnosis: Right Middle Finger Infection with Purulent Drainage Post-Op Diagnosis: Right Middle Finger Infection with Purulent Drainage I identified the patient and participated in the time-out.: Yes Procedure Operation Date: 07/23/19 08:20 Actual Procedures p Right Third Finger Deep Incision and Drainage(Right) - Servando Farmer MD Surgeon Servando Farmer MD Cpr Instructor Ricardo Rossi & Luis Ryan PA-C (No fellow avail) Estimated Blood Loss 7 Findings See Below There was an open wound over the dorsal aspect of the right middle finger, that violated the extensor mechanism and entered the PIP joint. There was significant devitalized, fibrinous, necrotic soft tissue; however, there was no pocket of purulent fluid found. The articular cartilage looked intact. The proximal and middle phalanx showed no signs of softening. Fluids 800 cc Specimens C&S R MF R MF soft tissue for path Drains n/a Anesthesia Type General Complications none Indications The patient is a 54-year-old male, right-hand dominant, that has a draining wound from their right middle finger over the PIP joint that appears infected now. The patient had fallen and sustained a laceration over the right middle finger PIP joint several weeks ago and had it sutured closed at a local hospital, but never obtained were took any of the antibiotics that were prescribed. The patient understands the risks of surgery, which include but are not limited to: bleeding, infection, re-operation, damage to nerves and arteries, continued pain and possible need for repeat surgery. The patient understands all of these instructions and explanations, all of their questions have been satisfactorily addressed. The patient has elected to proceed with surgery and the informed consent was signed. Description of Procedure The patient was taken to the Operating Room and placed in the supine position on the operating table. After general anesthetic was administered a multidisciplinary time-out was performed identifying my initials on the right upper limb as the correct and operative limb. Antibiotics were held as he is already on a regime of vancomycin and Unasyn. The right upper extremity was prepped and draped in the usual Orthopaedic sterile fashion. The planned incision incorporated the previous wound over the dorsal PIP joint of the right middle finger and extended in a lag fashion. The skin edges were injected with a 50:50 mixture of 1% lidocaine and 0.5 % Marcaine plain and in addition a digital nerve block was also performed for a total of 10cc. The planned incision created and there was a noted retained Prolene suture that was hidden under some of the scabbing, that was removed. There was devitalized, fibrinous, necrotic soft tissue among the skin as well as the extensor mechanism. There was a small defect in the extensor mechanism that entered the joint. Deep cultures were also obtained. Some of the devitalized and fibrinous material was removed with curet and rongeur and sent as specimen. The skin edges were freshened up as well as some of the other soft tissue with a scalpel removing any of the devitalized tissue. The extensor mechanism was freed off of the skin. There was no pocket of fluid or purulence. Following irrigation of the skin and PIP joint with 2 L of normal saline and debridement there was healthy viable red beefy tissue that was bleeding. The skin were closed with 3-0 Prolene. The wound was covered Xeroform, 2 x2's, sterile Jennifer and sterile Coban and. The sponge and needle counts were correct. POST-OP: Patient will be re-admitted to the medicine service and continued on IV Vancomycin and Unasyn until seen by infectious disease. I attest to the content of the Intraoperative Record and any orders documented therein. Any exceptions are noted below.
[2019-07-23] MEDS ORDERED: SODIUM CHLORIDE 0.9% 1000ML 1,000 ML IV SCH (18:16)
[2019-07-23] MEDS ORDERED: DiphenhydrAMINE HCL 50 MG/ML VIAL IV PRN (18:16)
[2019-07-23] MEDS ORDERED: ONDANSETRON INJ 2 MG/ML 2 ML VIAL IV PRN (18:16)
[2019-07-23] MEDS ORDERED: METOCLOPRAMIDE HCL INJ 5 MG/ML 2 ML VIAL IV PRN (18:16)
[2019-07-23] MEDS ORDERED: MAGNESIUM HYDROXIDE SUSP 30 ML UDC PO PRN (18:16)
[2019-07-23] MEDS ORDERED: NALOXONE HCL 0.4 MG/1 ML VIAL/CARP IV PRN (18:16)
[2019-07-23] MEDS ORDERED: bisacodyL 10 MG SUPP PR PRN (18:16)
--- NOTE | 2019-07-23 18:18 | Operative Report ---
Post Operative Report Pre & Post Diagnosis Operation Date: 07/23/19 08:20 Pre-Op Diagnosis: Right Abcess Thrid Finger with Purulent Drainage Post-Op Diagnosis: Right Abcess Thrid Finger with Purulent Drainage I identified the patient and participated in the time-out.: Yes Procedure Operation Date: 07/23/19 08:20 Actual Procedures p Right Third Finger Deep Incision and Drainage(Right) - Servando Farmer MD Surgeon Servando Farmer MD Case Consultant C Flo & Luis Ryan PA-C (No fellow avail) Estimated Blood Loss 7 Findings Consistent with Post-Op Diagnosis Specimens bone and soft tissue Complications none Description of Procedure See Dr Farmer operative report for full details. I was first aid officer during middl e to end of case to include limb and instrument handling, wound closure, dressings. I attest to the content of the Intraoperative Record and any orders documented therein. Any exceptions are noted below.
--- NOTE | 2019-07-23 18:34 | Anesthesiology Progress Note ---
Date of Service July 23, 2019 Anesthesia Post Procedure Vital Signs Vital Signs: Temp Pulse Pulse Resp BP BP Pulse Ox 07/23/19 18:15 73 14 109/87 97 07/23/19 18:07 36.5 C 67 14 136/91 97 07/23/19 14:20 37 C 79 18 140/83 93 07/23/19 07:11 36.9 C 83 16 111/72 93 07/22/19 23:50 37 C 86 18 116/70 94 07/22/19 21:29 37.1 C 80 16 151/80 H 93 07/22/19 20:12 88 18 138/90 95 Pain Intensity Right Posterior 3rd Digit: Pain Intensity: 0 Transfer of Care Handoff Completed per policy Notes Mental Status: alert / awake / arousable and participated in evaluation Patient Amnestic to Procedure: Yes Nausea / Vomiting: adequately controlled Pain: adequately controlled Airway Patency, RR, SpO2: stable & adequate BP & HR: stable & adequate Hydration State: stable & adequate Anesthetic Complications: no major complications apparent and Pt Satisfied with anesthetic care
[2019-07-23] MEDS: SENNA 8.6 MG TAB PO SCH (22:04)
[2019-07-23] MEDS: DOCUSATE SODIUM 100 MG CAP PO SCH (22:07)
[2019-07-24] MEDS ORDERED: VANCOMYCIN TROUGH ONE ×2 (01:30→09:30)
[2019-07-24] MEDS: VANCOMYCIN HCL 1,500 MG in SODIUM CHLORIDE 0.9% 500 ML IV SCH ×2 (02:31→10:26)
[2019-07-24] MEDS: PIPERACILLIN/TAZOBACTAM 3.375 GM in DEXTROSE 5% 100 ML IV SCH ×2 (05:16→14:19)
[2019-07-24 06:18] LABS: Est GFR (Non-African American) 102.7
--- NOTE | 2019-07-24 08:17 | Anesthesiology Progress Note ---
Date of Service July 24, 2019 Anesthesia Post Procedure Vital Signs Vital Signs: Temp Pulse Pulse Resp BP BP Pulse Ox 07/24/19 07:34 37.2 C 76 16 114/66 96 07/24/19 02:36 37.2 C 72 16 104/59 L 95 07/23/19 22:00 37.2 C 95 H 16 105/65 93 07/23/19 21:00 37.1 C 80 16 127/76 93 07/23/19 20:00 36.7 C 75 16 141/88 H 94 07/23/19 19:30 36.9 C 76 16 126/83 96 07/23/19 19:00 36.4 C L 79 18 133/85 95 07/23/19 18:45 36.5 C 87 15 128/88 95 07/23/19 18:35 77 14 114/84 94 07/23/19 18:25 79 16 115/77 98 07/23/19 18:15 73 14 109/87 97 07/23/19 18:07 36.5 C 67 14 136/91 97 07/23/19 14:20 37 C 79 18 140/83 93 Pain Intensity Right Posterior 3rd Digit: Pain Intensity: 6 Notes Mental Status: alert / awake / arousable and participated in evaluation Patient Amnestic to Procedure: Yes Nausea / Vomiting: adequately controlled Pain: adequately controlled Airway Patency, RR, SpO2: stable & adequate BP & HR: stable & adequate Hydration State: stable & adequate Anesthetic Complications: no major complications apparent and Pt Satisfied with anesthetic care
[2019-07-24] MEDS: MULTIVITAMIN TAB PO SCH (09:19)
[2019-07-24] MEDS: OXYCODONE HCL IR 5 MG TAB (IMMEDIATE RELEASE) PO PRN ×2 (09:23→16:53)
[2019-07-24] MEDS: DOCUSATE SODIUM 100 MG CAP PO SCH ×2 (09:23→20:18)
--- NOTE | 2019-07-24 10:25 | Hospitalist Progress Note ---
Date of Service July 24, 2019 Assessment & Plan (1) Cellulitis of hand, right: 54yo M no significant PMH, admitted for severe infection/purulent cellulitis of R hand and Rt 3rd finger Cellulitis -Wound and blood cultures growing staph aures with pending sensitivities -Continue with vanc and zosyn; plan for tomorrow to switch to Clindamycin PO for coverage of micro positive culturs -Ortho provided surgical intervention 07/23 -MRI of hand showed significant infection without osteomyelitis -Vitals stable, no s/s of sepsis; cont to monitor -Elevated ESR, mildly elevated CRP -Pain control with tylenol, oxy, and morphine prn -Tetanus given during stay Code: full DVTP: scds Dispo: MSO admit (2) Purulent abscess: Supervising Physician Co-Signing Physician Notes Attending attestation Pt seen and examined in concert with Dr. Castillo. In agreement with the documented findings as noted in the resident documentation with any exceptions or additions as noted here. POD #1. Pain well controlled on present regimen. Progressive improvement in swelling. Patient eager to return to work. Improved paresthesia of the distal 3rd right digit. On examination, S1/S2 nl RRR no MCG. CTAB. Abd NT/ND BS+ve. Right 3rd PIP dressing C/D/I. Right 3rd digit cellulitis - orthopaedics consultation - Cx +ve MRSA and GAS. ID consultation for dose/duration. Continue IV abx and transition to PO clinda in AM Else see resident documentation as noted. Subjective Mr. Tom notes that his right 3rd digit is throbbing status post surgical intervention yesterday. He has no other acute complaints. Physical Exam Constitutional: WD/WN, vitals as above Eyes: + anicteric sclerae and EOM intact bilaterally Neck: normal visual inspection and trachea midline Respiratory: normal respiratory effort, lungs clear to auscultation Cardiovascular: Rate/Rhythm: regular rate and regular rhythm Musculoskeletal: Head/Neck/Chest: normocephalic and head atraumatic right 3rd digit with dressing intact Skin: no rashes, warm and dry Psychiatric: A+Ox3, euthymic affect Results & Data Vital Signs (Past 12 Hours) Vital Signs Temp Pulse Resp BP BP Pulse Ox 07/24/19 07:34 37.2 C 76 16 114/66 96 07/24/19 02:36 37.2 C 72 16 104/59 L 95 Laboratory Results Laboratory Results - last 24 hr 07/24/19 07/24/19 05:17 09:25 Creatinine 0.80 Est Cr Clr Drug Dosing 115.0 Est GFR ( Amer) 119.0 Est GFR (Non-Af Amer) 102.7 Vancomycin Trough 20.2 Medications Administered Docusate Sodium (Colace) 100 mg PO BID [facility] Stop: 08/22/19 20:59 Last Admin: 07/24/19 09:23 Dose: 100 mg Documented by: [id number] Admin: 07/23/19 22:07 Dose: 100 mg Documented by: [id number] Vancomycin HCl 1,250 mg/ (Sodium Chloride) 275 mls @ 125 mls/hr IV Q8H [facility]; Protocol Stop: 07/24/19 22:00 Last Infusion: 07/24/19 14:15 Dose: 0 mls/hr Documented by: [id number] Admin: 07/24/19 11:49 Dose: 125 mls/hr Documented by: [id number] Lactobacillus Acidophilus (Floranex) 4 tab PO TIDM [facility] Stop: 08/23/19 16:59 Last Admin: 07/24/19 16:43 Dose: 4 tab Documented by: [id number] Multivitamins (Multivitamin Tab) 1 tab PO QAM [facility] Stop: 08/23/19 08:59 Last Admin: 07/24/19 09:19 Dose: 1 tab Documented by: [id number] Oxycodone HCl (Roxicodone Immediate Rel) 5 mg PO Q6H PRN PRN Reason: Moderate Pain Stop: 08/05/19 21:15 Last Admin: 07/24/19 16:53 Dose: 5 mg Documented by: [id number] Admin: 07/24/19 09:23 Dose: 5 mg Documented by: [id number] Admin: 07/23/19 19:21 Dose: 5 mg Documented by: [id number] Admin: 07/23/19 08:19 Dose: 5 mg Documented by: [id number] Admin: 07/22/19 23:38 Dose: 5 mg Documented by: [id number] Sennosides (Senokot) 17.2 mg PO HS [facility] Stop: 08/22/19 20:59 Last Admin: 07/23/19 22:04 Dose: 17.2 mg Documented by: [id number] Resident Activity Tracking Resident Involvement: Resident Care Provided Care Provided: Adult [facility] Medicine
[2019-07-24] MEDS: VANCOMYCIN HCL 1,250 MG in SODIUM CHLORIDE 0.9% 250 ML IV SCH ×2 (11:49→19:11)
--- NOTE | 2019-07-24 13:33 | Infectious Disease Consult ---
Date of Consultation July 24, 2019 Assessment & Plan (1) Abscess of finger: pt can continue on IV vanco for now, will stop zosyn, no gnr identified. upon d/c would suggest transition to po clinda 300mg po tid x 3 weeks min. also suggest probiotics while on clinda. He will need outpt followup post d/c prior to d/c abx, he would prefer to follow with his physician in [place] area as he will no longer be working in the area at that time. Ok for d/c from ID standpoint when otherwise stable. History of Present Illness Attending Physician: William Ortiz MD pt admitted with injury to right 3rd digit. States he fell at home in [place], was treated locally there with sutures and abx which he did not complete due to travel for work. unclear abx. 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 He has had increased swelling, purulent draiange and pain in finger, came to ER. culture obtained, growing CA-MRSA and GAS. He is currently on zosyn and vanco and tolerating well, vanco trough today is 20. no abd pain, no n/v/d, eating well. pain much improved, asking to go home. He had ortho eval and washout yesterday, OR cultures growing GAS and S. aureus, not yet final. retained suture was noted, necrotic tissue debrided. He had MRI on 07/23, no evidence of osteo, ESR elevated >90, crp 4, wbc normal. Blood cultures 07/22 and negative to date x 2 sets. OR dressing not yet changed. He is overall feeling better, anxious to return to work. ID consulted for abx recs and duration. 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 Beliefs That Will Affect Care: None marital status: Single Current Living Situation: Other Current Living Situation Comment: roommate Feels Safe at Home: Yes Safety Concerns: Feels Safe At This Time Smoking Status: Current every day smoker Tobacco Type: cigarettes ; Cigarettes Per Day: 5 ; Hx Alcohol Use: Yes Alcohol type: beer Hx Substance Use: No Review of Systems Review of Systems: All systems reviewed & are unremarkable except as noted in HPI & below Physical Exam Constitutional: WD/WN, vitals as above Eyes: PERRL, conjunctivae normal, anicteric sclerae ENMT: external ear and nose normal, oropharynx normal Neck: normal visual inspection Respiratory: normal respiratory effort, lungs clear to auscultation Cardiovascular: RRR, no murmur, no edema Gastrointestinal (Abdomen): normal bowel sounds, soft, nontender, no hepatosplenomegaly Musculoskeletal: no cyanosis or clubbing, extremities motor strength 5/5 Skin: no rashes, warm and dry 3rd digit dressing c/d/i, no warmth, non tender, FROM no bleeding, drainage Psychiatric: A+Ox3, euthymic affect Results & Data Vital Signs (Past 12 Hours) Vital Signs Temp Pulse Resp BP BP Pulse Ox 07/24/19 11:38 37.1 C 77 16 116/68 93 07/24/19 07:34 37.2 C 76 16 114/66 96 07/24/19 02:36 37.2 C 72 16 104/59 L 95 Laboratory Results Microbiology 07/23/19 17:10 Finger,Right Middle Gram Stain - Final 07/23/19 17:10 Finger,Right Middle Aerobic and Anaerobic Culture - Preliminary Staphylococcus aureus Group A Beta Strep 07/22/19 17:52 Finger Gram Stain - Final 07/22/19 17:52 Finger Wound Culture - Final Staph aureus MRSA Group A Beta Strep 07/22/19 18:05 Blood Aerobic Blood Culture - Preliminary No growth in Aerobic bottle after 24 hours. 07/22/19 18:05 Blood Anaerobic Blood Culture - Preliminary No growth in Anaerobic bottle after 24 hours. 07/22/19 18:05 Blood Aerobic Blood Culture - Preliminary No growth in Aerobic bottle after 24 hours. 07/22/19 18:05 Blood Anaerobic Blood Culture - Preliminary No growth in Anaerobic bottle after 24 hours. PG Care Time/CCT Total # of Minutes Spent Total Time Spent with Patient: Total time spent is greater than 50% in coordination of care (as documented) at patient's floor/unit and/or counseling patient: (1) Abscess of finger Laterality: right Qualified Code(s): L02.511 - Cutaneous abscess of right hand
--- NOTE | 2019-07-24 14:54 | Orthopedic Progress Note ---
Date of Service July 24, 2019 Assessment & Plan (1) Abscess of finger: POD 1 - s/p I & D right middle finger infection. Continue elevation right hand Keep dressings in place, keep clean and dry. Allowed for range of motion right hand as tolerated. Antibiotics as per Infectious Disease, since affecting the PIP joint, plan on 8 weeks of treatment. Will discuss findings with Dr. Farmer Plan for discharge to home. Patient states he's going home tomorrow. Will change dressings tomorrow and assess if repeat I&D is needed. Follow up with DR. Farmer in approximately 1 week after d/c for re-check. Continue care per primary service. I, Dr. Farmer, saw and examined the patient and agree with the above findings and plan of care discussed with my PA. I also discussed with the primary service. Subjective No pain, states better since surgery. Tolerating a regular diet, no chest pain or shortness of breath. Physical Exam Physical Exam: Right hand nontender to palpation. Dressings left on right middle finger. No edema right hand. Moves wrist well. Mild decreased sensation tip of middle finger, cap refill brisk. Finger warm. Results & Data Vital Signs (Past 12 Hours) Vital Signs Temp Pulse Resp BP Pulse Ox 07/24/19 11:38 37.1 C 77 16 116/68 93 07/24/19 07:34 37.2 C 76 16 114/66 96 (1) Abscess of finger Laterality: right Qualified Code(s): L02.511 - Cutaneous abscess of right hand
[2019-07-24] MEDS: LACTOBACILLUS ACIDOPHILUS (FLORANEX) TAB PO SCH (16:43)
[2019-07-24] MEDS: SENNA 8.6 MG TAB PO SCH (20:18)
[2019-07-25 08:53] LABS: Creatinine Clr Calc Pharmacy 104.6 ml/min; Est GFR (African American) 114.5; Est GFR (Non-African American) 98.8
[2019-07-25] MEDS: DOCUSATE SODIUM 100 MG CAP PO SCH (09:00)
[2019-07-25] MEDS: MULTIVITAMIN TAB PO SCH (09:00)
[2019-07-25] MEDS ORDERED: CLINDAMYCIN HCL 150 MG CAP PO SCH (09:00)
[2019-07-25] MEDS: LACTOBACILLUS ACIDOPHILUS (FLORANEX) TAB PO SCH ×2 (09:02→11:43)
--- NOTE | 2019-07-25 09:48 | Orthopedic Progress Note ---
Date of Service July 25, 2019 Assessment & Plan (1) Abscess of finger: POD 2 - s/p I & D right middle finger infection. Continue elevation right hand Dressing changed, patient can shower but not to submerge R MF. Change dressing qday or every other day with Xeroform, 4x4, Jennifer, and Coban. Allowed for range of motion right hand as tolerated. Antibiotics as per Infectious Disease, since affecting the PIP joint, plan on 8 weeks of treatment. Plan for discharge to home. Patient states he's going home tomorrow. OK to d/c from ortho standpoint. Follow up with DR. Farmer in approximately 1 week after d/c for re-check. Continue care per primary service. Subjective R MF feeling better. Mr. Tom notes that his right 3rd digit is throbbing status post surgical intervention yesterday. He has no other acute complaints. Review of Systems Review of Systems: All systems reviewed & are unremarkable except as noted in HPI & below Physical Exam Physical Exam: Right MF: BCR<2 sec. Sensation to light touch intact. Incision and wound clean and intact, looks very good. Small area at apex of wound less than 1 mm with minimal serous drainage. Decreased swelling. No erythema. Stiff digit. Results & Data Vital Signs (Past 12 Hours) Vital Signs Temp Pulse Resp BP Pulse Ox 07/25/19 07:44 37.0 C 73 16 119/76 95 07/24/19 23:00 36.8 C 73 16 131/81 92 (1) Abscess of finger Laterality: right Qualified Code(s): L02.511 - Cutaneous abscess of right hand
--- NOTE | 2019-07-25 10:07 | Discharge Summary ---
Date of Service July 25, 2019 Admission HPI Per Admitting Provider Patient is a 54yo M no significant PMH, who presents with concerns for infected right 3rd finger. Patient notes that 2 weeks ago, he injured his rt 3rd finger after falling onto his closed hand, breaking skin on his 3rd knuckle. He states that on the day of the injury, he went to a hospital in [place], where they placed stitches. He states that it was recommended he take antibiotics, but due to work constraints he was unable to pick them up. He has not been on any abx in the last 2 weeks. 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 He states the wound had been "fine" over the past 2 weeks, but reports some pus-like drainage from the wound. Yesterday, he noted his R 3rd finger become very swollen and painful, which was new. He notes there is now pain and swelling in all of his digits on his R hand and this extends to his wrist. He denies fever, chills, nausea, vomiting, diarrhea. Reports limited ROM of the 3rd finger. He is a current daily smoker. In the ER, he was noted to be afebrile with stable vital signs. CBC revealed WBC of 8.3K. BMP normal. ESR >90 and CRP of 4.39. Blood and wound cultures were sent and are pending. He was given a dose of vancomycin and cefepime. 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 Admission Exam Per Admitting Provider Constitutional: WD/WN, vitals as above average body habitus Eyes: PERRL, conjunctivae normal, anicteric sclerae ENMT: external ear and nose normal, oropharynx normal Neck: normal visual inspection Respiratory: normal respiratory effort, lungs clear to auscultation Cardiovascular: RRR, no murmur, no edema Gastrointestinal (Abdomen): normal bowel sounds, soft, nontender, no hepatosplenomegaly Musculoskeletal: Extremities: + hand abnormality (Diffuse swelling of R hand compared to L. 3rd finger open lesion, purulent) Right Skin: + lesion Trauma: + evidence of skin trauma Rt 3rd finger diffusely swollen with open wound at 3rd dorsal PIP joint with purulent discharge. Neurologic: PERRL, EOMI, accommodation nl, no face palsy, no dysarthria Psychiatric: A+Ox3, euthymic affect Principal Diagnosis Right 3rd Digit Cellulitis; positive MRSA and Group A Strep Cultures Discharge Exam Constitutional WD/WN, vitals as above Eyes PERRL and EOM intact bilaterally ENMT external ear and nose normal, oropharynx normal Neck normal visual inspection and trachea midline Respiratory normal respiratory effort, lungs clear to auscultation Cardiovascular RRR, no murmur, no edema Gastrointestinal (Abdomen) Percussion/Palpation: abdomen soft; abdomen nontender and no guarding Musculoskeletal Head/Neck/Chest: normocephalic and head atraumatic Right 3rd digit dressing intact, clean, dry Skin no rashes, warm and dry Neurologic moves all extremities and awake Psychiatric A+Ox3, euthymic affect Discharge Data Allergies Allergy/AdvReac Type Severity Reaction Status Date / Time No Known Allergies Allergy Verified 07/22/19 18:46 Consultations 07/22/19 19:48 ED Decision to Admit Stat 07/22/19 21:16 Consult Orthopedic Surgery Routine 07/23/19 18:16 Consult Case Management - Discharge Planning Routine 07/24/19 12:57 Consult Infectious Diseases Routine Procedures Performed Operation Date: 07/23/19 08:20 Actual Procedures p Right Third Finger Deep Incision and Drainage(Right) - Servando Farmer MD Ordered Studies 07/23/19 09:28 MR hand RT wo con Routine 1. Dorsal soft tissue swelling is subcutaneous edema seen throughout the hand most pronounced at the PIP joint of the third finger. 2. Subtle marrow edema without abnormal T1 signal at the head/neck of the proximal phalanx of the third finger. There is also small amount of surrounding fluid/hemorrhage at the neck of the proximal phalanx which could be subperiosteal. This raises the possibility of a healing fracture. Follow-up radiograph in 2 weeks is recommended for confirmation. No acute fractures identified. A developing osteitis/infectious process is considered less likely given the lack of T1 signal abnormality but not entirely excluded. 3. Small focus of mild marrow edema along the dorsal head of the third metacarpal. This could represent a prior bone contusion in the appropriate clinical setting. 4. Redemonstration of the old avulsion injury at the volar plate of the middle phalanx of the third finger with slight retraction of the flexor digitorum tendon. Hospital Course (1) Cellulitis of hand, right: 54yo M no significant PMH, admitted for severe infection/purulent cellulitis of R hand and Rt 3rd finger Cellulitis -Wound and blood cultures growing staph aures with sensitivities to Clindamycin, Tetracyclines, Bactrim. Also grew Group A Beta strep without sensitivities. - ID was consulted and choice of Abx as outpatient was Clindamycin 300mg TID x 3 weeks with Probiotic to be taken as well TID. -In hospital receieved vanc and zosyn; prior to switch to Clindamycin PO -Ortho provided surgical intervention 07/23 -MRI of hand showed significant infection without osteomyelitis -Vitals stable, no s/s of sepsis -Elevated ESR, mildly elevated CRP on initial workup -Pain control with tylenol, oxy, and morphine prn -Tetanus given during stay Code: full DVTP: scds Dispo: MSO admit (2) Purulent abscess: Total Time Total Time Spent Total Time Spent (In Minutes): 35 Total Time Includes: Examination of the Patient, Discharge Planning, Medication Reconciliation and Communication With Other Providers Discharge Plan Discharge Items Patient Disposition: Home - Self-Care Reason For Visit: PURULENT CELLULITIS Discharge Diagnosis: Right 3rd digit Cellulitis Condition on Discharge: Good Activity: Per Instructions section Non-emergency contact: Surgeon Call non-emergency contact if: your pain is not controlled, your pain is worsening, your pain is concerning for you, you have a fever, your temperature is above 101, your wound has increased redness and your wound has increased drainage Follow-up/Referrals: Servando Farmer MD [Physician] - 08/02/19 11:00 am PCP,NO [Primary Care Provider] - Diet: Regular Addtl Attending Provider Instructions: You will need to take an antibiotic for 3 weeks called Clindamycin 300mg, you will need to take this medication 3 times per day, Breakfast/Lunch/Dinner. It is very important to take this medication to treat your infection for best outcome. You will also take a pro-biotic medication called Floranex, 4 tablets with your Clindamycin, again 3 times per day. As the antibiotic can kill your normal bacteria in your stomach. This medication helps to replace the healthy bacteria. Your prescriptions were electronically sent to the [facility] located at the address below: [address], [place] [facility] [employer] Provider Instructions: Keep dressing on right hand at all times. Keep dressings clean and dry right hand. May change daily and get incision wet in shower, let soap and water run over incision, pat incision dry and redress with light dressing. Elevate right hand above heart to relieve pain/swelling Ice to right hand as needed Range of motion (movement) fingers right hand as tolerated Antibiotics as instructed by infectious disease. Follow up with Dr. Farmer in 2 weeks after surgery. Call [phone] to schedule, confirm or reschedule your appointment. No heavy pushing, pulling or lifting right hand. No work until instructed by Dr. Servando Farmer. Pending Studies at Discharge: No Stand-Alone Forms: [employer], Smoking Cessation Medications and DC Order Prescriptions: New clindamycin HCl 150 mg Capsule 300 mg PO TID 30 Days Qty: 180 RF: 3 Lactobacillus acidoph-L.bulgar [Floranex] 1 million cell Tablet 4 tab PO TIDM 30 Days Qty: 120 RF: 3 No Action No Known Home Medications RF: 0 Discharge Orders: Discharge Order (Routine); Ordered 07/25/19 Ordered By: Oswaldo Ruiz/Other Patient Handouts: Surgery Prevent DVT After Admission Data Admit Date/Time: 07/22/19 20:43 Attending Provider: William Ortiz Admit Provider: Marielos Hyman Primary Care Provider: PCP,NO Other Providers: Cole Verma ; Servando Farmer ; Serena Cali Other Interventions: Discharge Summary Assessment (RN) Last Done: 07/25/19 10:49 DC Date/Time DO NOT enter until pt leaves facility: 07/25/19 12:40 Supervising Physician Co-Signing Physician Notes Attending attestation Pt seen and examined in concert with Dr. Castillo. In agreement with the documented findings as noted in the resident documentation with any exceptions or additions as noted here. POD #2. Pain well controlled on present regimen. Continues to improve in pain and swelling. Resolution of distal paresthesia On examination, S1/S2 nl RRR no MCG. CTAB. Abd NT/ND BS+ve. Right 3rd PIP dressing C/D/I. Right 3rd digit cellulitis - orthopaedics consultation - Cx +ve MRSA and GAS. ID consultation for dose/duration. Complete 3 wks with PO clindamycin Else see resident documentation as noted. Resident Activity Tracking Resident Involvement: Resident Care Provided Care Provided: Adult Hospital Medicine
== END 2019-07-25 12:40 | disposition home or self-care (01) | DRG 580 ==
LOC: ED 17:33 → 3N 20:43 → SUATTDRO 20:43 → 3N 21:03